=== PATIENT | female | born 1975 | race Caucasian/White ===

== ENCOUNTER 2017-03-05 12:09 | Emergency (ER) | payer BC ==
[~2017-03-05] VITALS: Ht 160 cm; Wt 70.3 kg
[2017-03-05 12:16] VITALS: BP_SYST 142
[2017-03-05 14:48] VITALS: BP_SYST 143
== END 2017-03-05 14:48 | disposition home or self-care (01) ==
LOC: SED 12:09
DX: S90.111A Contusion of right great toe without damage to nail, initial encounter (principal); M25.521 Pain in right elbow; G43.909 Migraine, unspecified, not intractable, without status migrainosus; I10 Essential (primary) hypertension; W01.0XXA Fall on same level from slipping, tripping and stumbling without subsequent striking against object, initial encounter; Y93.01 Activity, walking, marching and hiking; Y92.098 Other place in other non-institutional residence as the place of occurrence of the external cause; Y99.8 Other external cause status
CPT/HCPCS: 99284

== ENCOUNTER 2018-05-19 11:20 | Emergency (ER) | payer BC ==
[~2018-05-19] VITALS: Ht 160 cm; Wt 72.6 kg
[2018-05-19 11:30] VITALS: BP_SYST 143
[2018-05-19 12:31] LABS: WHITE BLOOD COUNT (AUTO) 10.1 K/uL (4.8-10.8)
[2018-05-19 12:32] LABS: BASOPHILS % (AUTO) 0.7 % (0.0-2.0); EOSINOPHILS % (AUTO) 0.7 % (0.0-4.0); HEMATOCRIT 41.4 % (36-48); HEMOGLOBIN 13.8 g/dL (12.0-16.0); LYMPHOCYTES % (AUTO) 20.7 % (20.5-51.5); MEAN CORPUSCULAR HEMOGLOBIN 30 pg (27-31); MEAN CORPUSCULAR HGB CONC 33 % (32-36); MEAN CORPUSCULAR VOLUME 90 fL (79.0-98.0); MONOCYTES % (AUTO) 6.5 % (1.7-9.3); NEUTROPHILS # (AUTO) 7.2 K/uL (1.8-7.7); NEUTROPHILS % (AUTO) 71.4 % (40.0-70.0); PLATELET COUNT (AUTO) 312 K/uL (130-430); RED CELL DISTRIBUTION WIDTH 13.2 % (9.0-15.0)
[2018-05-19 12:33] LABS: BASOPHILS # (AUTO) 0.1 K/uL (0.0-0.2); EOSINOPHILS # (AUTO) 0.1 K/uL (0.0-0.4); LYMPHOCYTES # (AUTO) 2.1 K/uL (1.0-5.5); MONOCYTES # (AUTO) 0.6 K/uL (0.0-1.0)
[2018-05-19 12:39] LABS: CALCIUM 9.4 mg/dL (8.4-11.0); CREATININE 0.74 mg/dL (0.55-1.30); POTASSIUM 4.8 mmol/L (3.5-5.1)
[2018-05-19 12:46] LABS: ALBUMIN 3.9 g/dL (3.4-4.8); TOTAL BILIRUBIN 0.5 mg/dL (0.0-1.0)
[2018-05-19 13:03] LABS: BILIRUBIN,URINE NEGATIVE (NEGATIVE); BLOOD, URINE NEGATIVE (NEGATIVE); CLARITY/URINE SL HAZY (CLEAR); COLOR,URINE YELLOW (YELLOW); GLUCOSE,URINE NEGATIVE (NEGATIVE); KETONES,URINE NEGATIVE (NEGATIVE); LEUKOCYTE ESTERASE ,URINE NEGATIVE (NEGATIVE); NITRITE, URINE NEGATIVE (NEGATIVE); PH,URINE 5.5 (5.0-8.0); PROTEIN URINE NEGATIVE (NEGATIVE); UROBILINOGEN,URINE 0.2 (0.2-1.0)
[2018-05-19] MEDS ORDERED: KETOROLAC TROMETHAMINE 30 MG VIAL IM ONE (13:45)
[2018-05-19 16:03] VITALS: BP_SYST 131
== END 2018-05-19 16:03 | disposition home or self-care (01) ==
LOC: SED 11:20
DX: N83.201 Unspecified ovarian cyst, right side (principal); I10 Essential (primary) hypertension
CPT/HCPCS: 36415; 76830; 76857; 80053; 81003; 81025; 83690; 85025; 96372; 99284; J1885

== ENCOUNTER 2019-04-23 18:20 | Emergency (ER) | payer BC ==
[~2019-04-23] VITALS: Ht 160 cm; Wt 68.0 kg
[2019-04-23 18:51] VITALS: BP_SYST 141
--- NOTE | 2019-04-23 19:52 | NUR ---
Pt to [facility] [employer] Mattie for MSE
--- NOTE | 2019-04-23 20:14 | NUR ---
RT at bedside for breathing tx.
[2019-04-23] MEDS ORDERED: IPRATROPIUM/ALBUTEROL SULFATE 3 ML AMPUL.NEB (DUONEB) INH ONE (20:15)
--- NOTE | 2019-04-23 20:30 | NUR ---
Pt states that she feels a bit better after breathing treatment.
[2019-04-23 20:43] VITALS: BP_SYST 141
--- NOTE | 2019-04-23 20:43 | NUR ---
Patient given written and verbal discharge instructions and verbalizes understanding. ER MD discussed with patient the results and treatment provided. Patient in stable condition. ID arm band removed. Rx of azithromycin, promethazine, tylenol, tamiflu, motrin, albuterol given. Patient educated on pain management and to follow up with PMD. Pain Scale 0/10. Opportunity for questions provided and answered. Medication side effect fact sheet provided.
== END 2019-04-23 20:43 | disposition home or self-care (01) ==
LOC: SED 18:20
DX: J10.1 Influenza due to other identified influenza virus with other respiratory manifestations (principal); I10 Essential (primary) hypertension
CPT/HCPCS: 86710; 94640; 99283; J7620; 36415